=== PATIENT | male | born 1965 | race Caucasian/White ===

== ENCOUNTER 2020-07-27 17:48 | Emergency (ER) | payer MEDICAID, SELFPAY ==
[2020-07-27 18:59] VITALS: BP 117/75; PULSE 123; RESP 22; TEMP 36.9; O2SAT 95; BMI 32.5
--- NOTE | 2020-07-27 19:58 | CTR_ITS ---
PROCEDURE INFORMATION: Exam: CT Abdomen And Pelvis Without Contrast Exam date and time: 07/27/2020 8:23 PM Age: 55 years old Clinical indication: Abdominal pain; Localized; Lower; Prior surgery; Surgery date: 6+ months; Surgery type: Prostate; Additional info: Hematuria TECHNIQUE: Imaging protocol: Computed tomography of the abdomen and pelvis without contrast. Radiation optimization: All CT scans at this facility use at least one of these dose optimization techniques: automated exposure control; mA and/or kV adjustment per patient size (includes targeted exams where dose is matched to clinical indication); or iterative reconstruction. COMPARISON: CR Abdomen Series Acute [id number] 02/01/2019 10:52 AM RADIATION DOSE METRICS: Total DLP (mGy-cm): 1448.27 FINDINGS: Lungs: There is left basilar atelectasis versus scarring. Pleural space: There is left pleural thickening with extensive pleural calcification compatible with prior asbestos related exposure, remote injury or infection. Liver: Unremarkable.No mass. 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 There is no wall thickening or pericholecystic fluid to suggest cholecystitis. Pancreas: Normal. No ductal dilation. Spleen: Normal. No splenomegaly. Adrenal glands: Normal. No mass. Kidneys and ureters: There is bilateral severe hydronephrosis left slightly greater than right but no obstructing calculus is identified. There is inflammatory perinephric stranding. There is no evidence of renal calcifications. Stomach and bowel: There is no evidence of intestinal perforation or obstruction. There is no evidence of colitis/diverticulitis. Appendix: No evidence of appendicitis. Intraperitoneal space: Unremarkable. No free air. No significant fluid collection. Vasculature: The aorta demonstrates mild atherosclerotic calcification. Lymph nodes: There is retroperitoneal adenopathy with multiple lymph nodes measuring up to 11 mm in short axis. Multiple subcentimeter lymph nodes are noted in the pelvis and groin. Urinary bladder: There is marked urinary bladder wall thickening with abundant induration of the surrounding fat concerning for cystitis with poor distension. Multiple punctate calculi are noted dependently in the urinary bladder. Reproductive: Probable postoperative changes of a TURP procedure are noted. Bones/joints: Unremarkable. No acute fracture. Soft tissues: There is diffuse induration of the subcutaneous fat and mesenteric fat compatible with anasarca type changes. CT/CT kidney stone [id number] IMPRESSION: 1. There is marked urinary bladder wall thickening with abundant induration of the surrounding fat concerning for cystitis with poor distension. Tiny bladder calculi are noted. Bladder neoplasm cannot be excluded given the marked bladder wall thickening. 2. There is bilateral severe hydronephrosis left slightly greater than right but no obstructing calculus is identified. 3. There is diffuse induration of the subcutaneous fat and mesenteric fat compatible with mild anasarca type changes. Radiation Dose CTDIVOL = (mGy): DLP = 1448.27 (mGy-cm)
--- NOTE | 2020-07-27 19:59 | W.ED.MALEGU ---
HPI - Male Genitourinary General: Chief complaint: Urogenital-Male Stated complaint: blood in urine Time Seen by Provider: 07/27/20 19:44 Source: patient Mode of arrival: ambulatory Limitations: no limitations History of Present Illness: HPI Narrative: 55-year-old male patient comes in today with complaints of blood in his urine for the last 2 days. Patient reports that it started last night. Patient reports some lower abdominal pain. Patient has a history of prostatectomy. Patient has chronic incontinence after the surgery. Patient has diabetes and hypertension. Patient appears mildly unwell. Patient appears no acute distress. Patient does appear in mild to moderate pain. Associated symptoms: Reports dysuria and hematuria Review of Systems General: Reports: 10 or more systems reviewed and unremarkable except in HPI and below : Reports: dysuria and hematuria Physical Exam Const: COMMON NORMALS: no acute distress and patient oriented x3 GENERAL APPEARANCE: cooperative HENMT: COMMON NORMALS: normocephalic, TM's normal bilaterally and Normal external nose present HEAD & SCALP: normal to inspection and normocephalic NOSE: Normal external nose present TYMPANIC MEMBRANE: TM's normal bilaterally MOUTH: Normal oral and palatal mucosa present Eye: GENERAL EYE: appearance normal, both eyes and all related structures Neck/C-Spine: COMMON NORMALS: full ROM Chest: COMMONS NORMALS: normal inspection of the chest Resp: COMMON NORMALS: normal respiratory effort EFFORT & INSPECTION: Yes able to speak in complete sentences Cardio: COMMON NORMALS: regular rate and regular rhythm RATE: regular rate RHYTHM: regular rhythm GI: INSPECTION: Yes normal to inspection PALPATION: Yes Tenderness to palpation present (GI) (suprapubic) : COMMON NORMALS: Yes no CVA tenderness BLADDER/KIDNEY EXAM: Yes no CVA tenderness Back/Pelvis: COMMON NORMALS: no CVA tenderness and thoracic and lumbar spine normal to inspection Extremity: COMMON NORMALS: normal to inspection Neuro: COMMON NORMALS: patient oriented x3 and moves all extremities Psych: COMMON NORMALS: mental status grossly normal and cooperative Skin: COMMON NORMALS: no rashes or lesions noted GENERAL SKIN EXAM: no rashes or lesions noted Course ED course: 2114, discussed with Dr. Kohler regarding patient's abnormal CT scan of bilateral hydronephrosis and thickened bladder wall. Patient is resting quietly. He also notes the patient has a 680 blood glucose. Patient does have a of diabetes mellitus and uses insulin but has not had a today. Patient reports this is not abnormal for him to get blood sugars as high. Vital Signs: Vital signs: Vital Signs Temperature 98.4 F 07/27/20 18:59 Pulse Rate 107 H 07/27/20 22:18 Respiratory Rate 22 H 07/27/20 18:59 Blood Pressure 114/65 07/27/20 22:18 Pulse Oximetry 98 07/27/20 22:18 MDM - Male MDM Narrative: Medical decision making narrative: 55-year-old male patient comes in today with complaints of blood in urine and low back pain. Patient reports it started yesterday but was unable to come in yesterday due to the bad weather. Patient had a prostatectomy done about 6 months ago at [facility] in [facility]. Patient reports chronic incontinence. Abdomen was tender in the suprapubic area. Respirations were even lungs were clear to auscultation. Differential diagnosis includes not limited to bladder cancer, urinary obstruction, urinary tract infection. Laboratory values noted a 15,000 white count, creatinine of 0.9, blood glucose 683, sodium 126. CT scan of the abdomen pelvis noted no obstructing stones but bilateral hydronephrosis. I reviewed this with Dr. Kohler who suggested Dietrich catheter although patient did not noted to have a distended bladder, it was thought that may be that thickening of the bladder wall due to infection may be causing some reduced flow and that the patient may have a scarred bladder due to his previous urinary retention. Dietrich catheter return clear urine about 100-200 cc with patient having improvement in pain. We will allow patient to go home with catheter we will treat his urinary infection and have him follow-up with urologist. Patient reported understanding agreed to plan. Patient's high glucose was treated in the emergency room although no signs of significant illness was noted. Lab Data: Labs: Lab Results 07/27/20 07/27/20 07/27/20 Range/Units 19:10 20:00 20:00 WBC 14.9 H (4.0-10.0) 10^3/ uL RBC 3.66 L (4.1-5.3) 10^6/u L Hgb 9.9 L (11.7-16.6) g/dL Hct 32.4 L (42.0-52.0) % MCV 88.5 (80-94) fL MCH 27.0 L (28.0-34.0) pg MCHC 30.6 (30.0-36.0) g/dL RDW 12.1 (12.1-15.1) % Plt Count 429 H (130-400) 10^3/c mm MPV 9.5 (7.4-10.4) fL Neut % (Auto) 82.8 % Lymph % (Auto) 7.6 % [place] % (Auto) 8.3 % Eos % (Auto) 0.1 % Baso % (Auto) 0.2 % Neut # (Auto) 12.32 H (1.8-7.7) 10^3/u L Lymph # (Auto) 1.1 (0.8-4.8) 10^3/u L [place] # (Auto) 1.2 H (0.2-0.9) 10^3/u L Eos # (Auto) 0.0 (0.0-0.8) 10^3/u L Baso # (Auto) 0.0 (0.0-0.1) 10^3/u L Nucleated RBC % (a uto) 0 % Nucleated RBCs # 0.0 /100WBC PT 14.90 (12.1-14.9) SECO NDS INR 1.13 (0.8-1.2) Sodium (136-145) mmol/L Potassium (3.5-5.1) mmol/L Chloride (98-107) mmol/L Carbon Dioxide (22-29) mmol/L Anion Gap (5-19) BUN (6-20) mg/dL Creatinine (0.7-1.2) mg/dL GFR Calculation (90-130) mL/min Glucose (65-115) mg/dL Calculated Osmolal ity (285-295) mOsm/k g Lactic Acid (0.5-2.2) mmol/L Calcium (8.5-10.5) mg/dL Total Bilirubin (0.15-1.2) mg/dL AST (0-40) U/L ALT (0-41) U/L Alkaline Phosphata se (40-130) IU/L Total Protein (6.6-8.7) g/dL Albumin (3.5-5.2) g/dL Globulin (1.3-4.6) g/dL Urine Color Yellow (Yellow) Urine Appearance Turbid (CLEAR) Urine pH 7 (5-7) Ur Specific Gravit y 1.005 (1.005-1.030) Urine Protein 2+ H (Negative) Urine Glucose (UA) 4+ H (Normal) Urine Ketones Negative (Negative) Urine Blood 3+ H (Negative) Urine Nitrate Negative (Negative) Urine Bilirubin Neg (Negative) Urine Urobilinogen Norm (Negative) mg/dL Ur Leukocyte Dary ase 2+ H (Negative) Urine RBC 80-100 H (0-2) /hpf Urine WBC Too numerous to c nt H (0-5) /hpf Ur Squamous Epith Cells 0-4 H (0-5) /hpf Amorphous Sediment Not Reportable Urine Bacteria 2+ H (NONE) /hpf Serum Ketones (Negative) 07/27/20 07/27/20 07/27/20 Range/Units 20:00 20:00 20:00 WBC (4.0-10.0) 10^3/ uL RBC (4.1-5.3) 10^6/u L Hgb (11.7-16.6) g/dL Hct (42.0-52.0) % MCV (80-94) fL MCH (28.0-34.0) pg MCHC (30.0-36.0) g/dL RDW (12.1-15.1) % Plt Count (130-400) 10^3/c mm MPV (7.4-10.4) fL Neut % (Auto) % Lymph % (Auto) % [place] % (Auto) % Eos % (Auto) % Baso % (Auto) % Neut # (Auto) (1.8-7.7) 10^3/u L Lymph # (Auto) (0.8-4.8) 10^3/u L [place] # (Auto) (0.2-0.9) 10^3/u L Eos # (Auto) (0.0-0.8) 10^3/u L Baso # (Auto) (0.0-0.1) 10^3/u L Nucleated RBC % (a uto) % Nucleated RBCs # /100WBC PT (12.1-14.9) SECO NDS INR (0.8-1.2) Sodium 126 L (136-145) mmol/L Potassium 4.0 (3.5-5.1) mmol/L Chloride 91 L (98-107) mmol/L Carbon Dioxide 23 (22-29) mmol/L Anion Gap 16.0 (5-19) BUN 13 (6-20) mg/dL Creatinine 0.9 (0.7-1.2) mg/dL GFR Calculation 87.3 L (90-130) mL/min Glucose 683 H* (65-115) mg/dL Calculated Osmolal ity 295 (285-295) mOsm/k g Lactic Acid 1.1 (0.5-2.2) mmol/L Calcium 8.1 L (8.5-10.5) mg/dL Total Bilirubin 0.6 (0.15-1.2) mg/dL AST 7 (0-40) U/L ALT 10 (0-41) U/L Alkaline Phosphata se 91 (40-130) IU/L Total Protein 6.7 (6.6-8.7) g/dL Albumin 2.8 L (3.5-5.2) g/dL Globulin 3.9 (1.3-4.6) g/dL Urine Color (Yellow) Urine Appearance (CLEAR) Urine pH (5-7) Ur Specific Gravit y (1.005-1.030) Urine Protein (Negative) Urine Glucose (UA) (Normal) Urine Ketones (Negative) Urine Blood (Negative) Urine Nitrate (Negative) Urine Bilirubin (Negative) Urine Urobilinogen (Negative) mg/dL Ur Leukocyte Dary ase (Negative) Urine RBC (0-2) /hpf Urine WBC (0-5) /hpf Ur Squamous Epith Cells (0-5) /hpf Amorphous Sediment Urine Bacteria (NONE) /hpf Serum Ketones Negative (Negative) Discharge Plan Discharge Patient Disposition: Home Clinical Impression: Urinary tract infection Qualifiers: Urinary tract infection type: acute cystitis Hematuria presence: with hematuria Qualified Code(s): N30.01 - Acute cystitis with hematuria Diabetes mellitus type II, uncontrolled Qualifiers: Glycemic state: with hyperglycemia Qualified Code(s): E11.65 - Type 2 diabetes mellitus with hyperglycemia Condition: Stable Prescriptions: New cefdinir 300 mg capsule 300 mg PO BID 10 Days Qty: 20 RF: 0 Discharge Orders: Discharge ED (Routine); Ordered 07/27/20 Ordered By: Eze Aguero Discharge Diet: Usual diet Discharge Activity: Increase activity as tolerated Patient Instructions: Dietrich Catheter Placement and Care (ED) Activity Restrictions/Additional Instructions: Drink plenty of fluids. Follow-up with urologist on Thursday for appointment to have catheter removed and recheck on infection. Take antibiotics as directed. Return to the emergency room for uncontrolled pain or high fever. Coding Level of Care Code ED Printing Grey Cloth Tender for Madhav Fwdiamante Exam Comprehensive
[2020-07-27 20:11] LABS: Basophils % 0.2 %; Eosinophils % 0.1 %; Hematocrit 32.4 % (42.0-52.0); Hemoglobin 9.9 g/dL (11.7-16.6); Lymphocytes # 1.1 10^3/uL (0.8-4.8); Lymphocytes % 7.6 %; Mean Corpuscular HGB Conc 30.6 g/dL (30.0-36.0); Mean Corpuscular Volume 88.5 fL (80-94); Mean Platelet Volume 9.5 fL (7.4-10.4); Monocytes # 1.2 10^3/uL (0.2-0.9); Monocytes % 8.3 %; Neutrophils # 12.32 10^3/uL (1.8-7.7); Neutrophils % 82.8 %; Nucleated Red Blood Cells % 0 %; Platelet Count 429 10^3/cmm (130-400); Red Blood Count 3.66 10^6/uL (4.1-5.3); Red Cell Distribution Width 12.1 % (12.1-15.1); White Blood Count 14.9 10^3/uL (4.0-10.0)
[2020-07-27] MEDS: ondansetron 2 mg/ML SDV 2 mL 4 MG IVP (20:11)
[2020-07-27] MEDS: sodium chloride 0.9% 500 ML 999 ML IV (20:11)
[2020-07-27] MEDS: fentaNYL 50 mcg/mL INJ 2mL IVP (20:12)
[2020-07-27 20:15] VITALS: BP 103/69; PULSE 108; O2SAT 93
[2020-07-27 20:28] LABS: INR 1.13 (0.8-1.2)
[2020-07-27 20:35] LABS: Alanine Aminotransferase 10 U/L (0-41); Albumin Level 2.8 g/dL (3.5-5.2); Alkaline Phosphatase 91 IU/L (40-130); Aspartate Amino Transferase 7 U/L (0-40); Blood Urea Nitrogen 13 mg/dL (6-20); Calcium 8.1 mg/dL (8.5-10.5); Carbon Dioxide 23 mmol/L (22-29); Chloride 91 mmol/L (98-107); Globulin 3.9 g/dL (1.3-4.6); Glomerular Filtration Rate 87.3 mL/min (90-130); Lactic Sepsis W/Reflex 1.1 mmol/L (0.5-2.2); Osmolality Calculated 295 mOsm/kg (285-295); Sodium 126 mmol/L (136-145); Total Bilirubin 0.6 mg/dL (0.15-1.2); Total Protein 6.7 g/dL (6.6-8.7)
[2020-07-27 20:57] LABS: Glucose 683 mg/dL (65-115)
[2020-07-27 21:22] LABS: Add Urine Microscopic? YES; Bilirubin Urine Neg (Negative); Blood Urine 3+ (Negative); Glucose Urine UA 4+ (Normal); Ketones Urine Negative (Negative); Leukocyte Esterase Urine 2+ (Negative); Nitrate Urine Negative (Negative); Protein Urine 2+ (Negative); Specific Gravity, Urine 1.005 (1.005-1.030); Urine Appearance Turbid (CLEAR); Urine Color Yellow (Yellow); Urobilinogen Urine Norm (Negative); pH Urine 7 (5-7)
[2020-07-27 21:32] LABS: RBC Urine 80-100 /hpf (0-2); Squamous Epithelial Cell Urine 0-4 /hpf (0-5); WBC Urine TOO NUMEROUS TO CNT /hpf (0-5)
[2020-07-27 21:33] LABS: Add Urine Culture? Yes; Bacteria Urine 2+ /hpf
[2020-07-27 21:34] LABS: Ketone (Acetest) Serum Negative (Negative)
[2020-07-27] MEDS: insulin regular-human 100 units/1 mL 12 UNIT IVP (21:36)
[2020-07-27] MEDS: potassium chloride ER 20 mEq Tablet 40 MEQ PO (21:37)
[2020-07-27 21:39] VITALS: BP 108/62; PULSE 104; O2SAT 95
[2020-07-27] MEDS: cefTRIAXone 2,000 MG in sodium chloride 0.9% (plus) 50 ML 100 MG IV (22:09)
[2020-07-27 22:18] VITALS: BP 114/65; PULSE 107; O2SAT 98
[2020-07-27 23:01] VITALS: BP 129/65
[2020-07-27 23:04] VITALS: BP 129/65; PULSE 105; O2SAT 97
[2020-07-28 09:20] LABS: Glucose Point of Care 430 mg/dL (70-110)
== END 2020-07-27 23:04 | disposition home or self-care (01) ==
PROVIDERS: Emergency Medicine; Emergency Provider Nurse Practitioner Family
DX: N30.01 Acute cystitis with hematuria (principal); E11.65 Type 2 diabetes mellitus with hyperglycemia
CPT/HCPCS: 12345; 36416; 51702; 74176; 80053; 81001; 82009; 82962; 83605; 85025; 85610; 87040; 87077; 87086; 87186; 96365; 96375; 99283; 99284; 99291; J0696; J1815; J2405; J3010; J7040

== ENCOUNTER 2020-08-01 10:54 | Emergency (ER) | payer MEDICAID, SELFPAY ==
[2020-08-01 11:00] VITALS: BP 152/83; PULSE 87; RESP 16; TEMP 36.8; O2SAT 97; BMI 32.5
--- NOTE | 2020-08-01 11:38 | W.ED.MALEGU ---
HPI - Male Genitourinary General: Chief complaint: General Medical Stated complaint: catheter tubing pulling, needs referral Time Seen by Provider: 08/01/20 11:22 Source: patient Mode of arrival: ambulatory Limitations: no limitations History of Present Illness: HPI Narrative: Patient is a nice 55-year-old gentleman who presents to ED today requesting repositioning to his Dietrich catheter as he states it is tugging when he moves in certain positions. Patient was seen at our facility approximately 5 days ago with complaints of hematuria and chunks in his urine. Evaluation during that visit showed a UTI. He had a CT scan showing marked bladder wall thickening most likely due to acute cystitis. He also was found to have severe bilateral hydronephrosis. There was no calculus obstruction. Patient tells me he has suffered from chronic urinary incontinence ever since his prostatectomy. Patient tells me after the Dietrich was placed on his last visit he feels much improved. The hematuria has resolved. He has been taking his antibiotics as prescribed. He is not having any flank pain. No fevers. He has mild suprapubic discomfort but states this is much improved since his last visit. He states he was supposed to have a referral to urology but has not heard from this. Associated symptoms: Deny nausea or vomiting Review of Systems Const: Denies: fever(s), chills, body aches, fatigue or malaise Card: Denies: chest pain Resp: Denies: dyspnea GI: Denies: abdominal pain, nausea, vomiting or diarrhea : Reports: urinary incontinence (chronic) and hematuria (vastly improved since last visit ); Denies: flank pain or penile discharge Musc: Denies: back pain Neuro: Denies: headache(s) Physical Exam Const: COMMON NORMALS: no acute distress, average body habitus, patient oriented x3, no limitations, healthy appearing, alert and well nourished Resp: COMMON NORMALS: normal respiratory effort and clear to auscultation bilaterally AUSCULTATION: clear to auscultation bilaterally Cardio: COMMON NORMALS: regular rate and regular rhythm RATE: regular rate RHYTHM: regular rhythm GI: COMMON NORMALS: Normal to inspection, nondistended, normoactive bowel sounds present, Soft to palpation, No hepatosplenomegaly present and no masses PALPATION: Yes Soft to palpation, Yes Tenderness to palpation present (GI) (mild suprapubic) and Yes No hepatosplenomegaly present : COMMON NORMALS: Yes no CVA tenderness BLADDER/KIDNEY EXAM: Yes no CVA tenderness Back/Pelvis: COMMON NORMALS: no CVA tenderness Extremity: COMMON NORMALS: normal to inspection, no clubbing, cyanosis or edema and no pedal edema Neuro: COMMON NORMALS: patient oriented x3 SENSORIUM/ORIENTATION: Yes alert Skin: COMMON NORMALS: no rashes or lesions noted GENERAL SKIN EXAM: no rashes or lesions noted Course Vital Signs: Vital signs: Vital Signs Temperature 98.2 F 08/01/20 11:00 Pulse Rate 87 08/01/20 11:00 Respiratory Rate 16 08/01/20 11:00 Blood Pressure 152/83 08/01/20 11:00 Pulse Oximetry 97 08/01/20 11:00 MDM - Male MDM Narrative: Medical decision making narrative: Patient reports he feels much better from his last visit. We discussed removing his Dietrich on today's visit as he is not having urinary retention however patient insists that he keeps it in as he is growing tired of the chronic urinary incontinence. His UA shows vast improvement. His culture from last visit growing Klebsiella pneumoniae sensitive to third-generation cephalosporins so the cefdinir patient was prescribed should be adequate. Patient is not having flank pain. He is not having fevers, chills, nausea, vomiting. His vital signs are stable. I do not feel repeating labs or imaging today was indicated. I have placed his information with case management to get him follow-up with Dr. Jenkins so he may evaluate the chronic incontinence as well as the CT findings of bladder wall thickening (neoplasm could not be excluded on the CT evaluation) and bilateral hydronephrosis. ED precautions given. Lab Data: Labs: Lab Results 08/01/20 Range/Units 12:00 Urine Color Yellow (Yellow) Urine Appearance Clear (CLEAR) Urine pH 7 (5-7) Ur Specific Gravit y 1.000 L (1.005-1.030) Urine Protein Neg (Negative) Urine Glucose (UA) 4+ H (Normal) Urine Ketones Negative (Negative) Urine Blood Neg (Negative) Urine Nitrate Negative (Negative) Urine Bilirubin Neg (Negative) Urine Urobilinogen Norm (Negative) mg/dL Ur Leukocyte Dary ase Trace H (Negative) Amorphous Sediment Not Reportable Discharge Plan Discharge Patient Disposition: Home Clinical Impression: Urinary incontinence Qualifiers: Urinary Incontinence type: other incontinence Qualified Code(s): N39.498 - Other specified urinary incontinence Dietrich catheter problem Qualifiers: Encounter type: initial encounter Qualified Code(s): T83.9XXA - Unspecified complication of genitourinary prosthetic device, implant and graft, initial encounter Condition: Stable Prescriptions: No Action atorvastatin 40 mg tablet 40 mg PO DAILY@0600 RF: 0 lisinopril 5 mg tablet 5 mg PO DAILY@0600 RF: 0 Lantus Solostar U-100 Insulin 100 unit/mL (3 mL) insulin pen 10 unit SUBCUT BEDTIME@2000 RF: 0 cefdinir 300 mg capsule 300 mg PO BID@0600,1700 RF: 0 Discharge Orders: Discharge ED (Routine); Ordered 08/01/20 Ordered By: Sherry Saba Referrals: Ethan Jenkins MD [Physician] - Activity Restrictions/Additional Instructions: As discussed case management should get a hold of you shortly to set you up with Dr. Jenkins. Return to the emergency department if your catheter begins having trouble draining, if you begin experiencing severe abdominal pain penile pain, or flank pain, fevers, reduced urine output, or any other concerns you may have. Coding Level of Care Code ED Attorney Law Clerk for Madhav Fwd Exam Detailed
[2020-08-01 12:36] LABS: Glucose Urine UA 4+ (Normal); Protein Urine Neg (Negative); Urine Appearance Clear (CLEAR); Urine Color Yellow (Yellow); pH Urine 7 (5-7)
[2020-08-01 12:37] LABS: Add Urine Microscopic? YES; Bilirubin Urine Neg (Negative); Blood Urine Neg (Negative); Ketones Urine Negative (Negative); Leukocyte Esterase Urine Trace (Negative); Nitrate Urine Negative (Negative); Urobilinogen Urine Norm (Negative)
[2020-08-01 12:50] LABS: Bacteria Urine TRACE /hpf; WBC Urine 0-4 /hpf (0-5)
--- NOTE | 2020-08-02 14:21 | DCPLANNER ---
Addendum entered by Mari Gagnon 08/15/20 11:32: manager equipment called the office of Dr. Jenkins to confirm that a follow up appointment had been scheduled for patient. manager equipment spoke with Rachel, was told that clinic is waiting for notes from another physician before he can be seen. Original Note: manager equipment had message to schedule a follow up appointment for patient with Dr. Jenkins. manager equipment called the office of Dr. Jenkins, spoke with Carli, gave clinic patients information. manager equipment was told that patients information would be printed and reviewed. Clinic will call patient with appointment information.
--- NOTE | 2020-08-28 12:45 | DCPLANNER ---
Patient has a follow up appointment scheduled for Thursday, September 03, 2020 at 3:[address] Jenkins. Clinic will call patient with appointment information.
--- NOTE | 2020-10-11 14:53 | DCPLANNER ---
Patient had a follow up appointment scheduled with Dr. Jenkins - patient did attend appointment.
== END 2020-08-01 13:01 | disposition home or self-care (01) ==
PROVIDERS: Emergency Provider Physician Assistant
DX: N39.498 Other specified urinary incontinence (principal); T83.9XXA Unspecified complication of genitourinary prosthetic device, implant and graft, initial encounter; Z79.4 Long term (current) use of insulin
CPT/HCPCS: 12345; 81001; 99281; 99282

== ENCOUNTER 2020-08-03 08:41 | Emergency (ER) | payer MEDICAID, SELFPAY ==
[2020-08-03 08:46] VITALS: BP 170/96; PULSE 95; RESP 20; TEMP 36.7; O2SAT 98; BMI 32.5
--- NOTE | 2020-08-03 08:56 | ED_ITS ---
HPI - Male Genitourinary General: Chief complaint: Urogenital-Male Stated complaint: CATETHER PROBLEMS Time Seen by Provider: 08/03/20 08:48 Source: patient Mode of arrival: ambulatory Limitations: no limitations History of Present Illness: HPI Narrative: Patient is a very nice 55-year-old male who presents to ED today with a complaint that his Xiao catheter is not draining. I saw patient 2 days ago for a complaint that his catheter/leg bag was tugging. On this visit Xiao was readjusted and patient reported an improvement. Xiao was draining adequately at that time. Patient tells me yesterday evening he began noticing the catheter was not draining. Currently he is complaining of lower abdominal pain. 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 Patient was seen on our facility approximately a week ago with complaints of hematuria and chunks in his urine. Evaluation during that visit showed a UTI. He had a CT scan showing marked bladder wall thickening most likely due to acute cystitis. He also was found to have severe bilateral hydronephrosis. There was no calculus obstruction. He has continued to take his antibiotics as directed. He denies flank pain, fevers, chills, nausea, vomiting. Prior to the Xiao becoming obstructed, patient tells me his urine had been clear and the hematuria and sediment had resolved. I placed a referral with Dr. Jenkins on his last visit. Complaint: other (xiao not draining) Onset (ago): hour(s) Location: abdomen Associated symptoms: Deny dysuria, nausea or vomiting Review of Systems Const: Denies: fever(s), chills, body aches, fatigue or malaise Card: Denies: chest pain Resp: Denies: dyspnea GI: Reports: abdominal pain; Denies: nausea, vomiting or change in stool character : Reports: urinary incontinence (chronic) and other (xiao not draining); Denies: flank pain, dysuria or penile discharge Musc: Denies: back pain Skin/Breast: Denies: rash Neuro: Denies: headache(s) Physical Exam Const: COMMON NORMALS: no acute distress, average body habitus, patient oriented x3, no limitations, healthy appearing, alert and well nourished GI: COMMON NORMALS: Normal to inspection, nondistended, normoactive bowel sounds present, Soft to palpation, No hepatosplenomegaly present and no masses PALPATION: Yes Soft to palpation, Yes Tenderness to palpation present (GI) (suprapubic) and Yes No hepatosplenomegaly present : COMMON NORMALS: Yes no CVA tenderness and Yes normal external exam BLADDER/KIDNEY EXAM: Yes catheter in place Catheter type (Male): urethral (xiao with leg bag; no urine in bag) and Yes no CVA tenderness PENIS: normal penis MEATUS: meatus normal Back/Pelvis: COMMON NORMALS: no CVA tenderness Extremity: COMMON NORMALS: no clubbing, cyanosis or edema, no calf tenderness and no pedal edema Neuro: COMMON NORMALS: patient oriented x3 SENSORIUM/ORIENTATION: Yes alert Skin: COMMON NORMALS: no rashes or lesions noted GENERAL SKIN EXAM: no rashes or lesions noted Course Reevaluation(s): Reevaluation #1: Xiao replaced by RN and now draining well. Patient reports feeling much better. Vital Signs: Vital signs: Vital Signs Temperature 98.1 F 08/03/20 08:46 Pulse Rate 95 08/03/20 08:46 Respiratory Rate 20 H 08/03/20 08:46 Blood Pressure 170/96 08/03/20 08:46 Pulse Oximetry 98 08/03/20 08:46 MDM - Male MDM Narrative: Medical decision making narrative: Patient's Xiao was irrigated without success. It ended up being replaced and is now draining well. Patient tells me he feels much better. He is no longer complaining of abdominal pain. He has no flank pain. Patient's information has been faxed to Dr. Jenkins's office-awaiting date and time for his appointment. Patient's blood work is non-concerning at this time. UA still looks okay. Recommended to continue the cefdinir he is prescribed for treatment of his initial UTI. Return to ED precautions given. Lab Data: Labs: Lab Results 08/03/20 08/03/20 08/03/20 Range/Units 12:08 12:16 12:16 WBC 7.0 (4.0-10.0) 10^3/ uL RBC 3.65 L (4.1-5.3) 10^6/u L Hgb 9.9 L (11.7-16.6) g/dL Hct 32.7 L (42.0-52.0) % MCV 89.6 (80-94) fL MCH 27.1 L (28.0-34.0) pg MCHC 30.3 (30.0-36.0) g/dL RDW 12.1 (12.1-15.1) % Plt Count 526 H (130-400) 10^3/c mm MPV 9.0 (7.4-10.4) fL Neut % (Auto) 67.0 % Lymph % (Auto) 22.1 % [place] % (Auto) 7.6 % Eos % (Auto) 1.6 % Baso % (Auto) 0.4 % Neut # (Auto) 4.69 (1.8-7.7) 10^3/u L Lymph # (Auto) 1.6 (0.8-4.8) 10^3/u L [place] # (Auto) 0.5 (0.2-0.9) 10^3/u L Eos # (Auto) 0.1 (0.0-0.8) 10^3/u L Baso # (Auto) 0.0 (0.0-0.1) 10^3/u L Nucleated RBC % (a uto) 0 % Nucleated RBCs # 0.0 /100WBC Sodium 140 (136-145) mmol/L Potassium 4.2 (3.5-5.1) mmol/L Chloride 100 (98-107) mmol/L Carbon Dioxide 30 H (22-29) mmol/L Anion Gap 14.2 (5-19) BUN 7 (6-20) mg/dL Creatinine 0.6 L (0.7-1.2) mg/dL GFR Calculation 139.4 H (90-130) mL/min Glucose 219 H (65-115) mg/dL Calculated Osmolal ity 295 (285-295) mOsm/k g Calcium 8.9 (8.5-10.5) mg/dL Total Bilirubin 0.3 (0.15-1.2) mg/dL AST 7 (0-40) U/L ALT 10 (0-41) U/L Alkaline Phosphata se 103 (40-130) IU/L Total Protein 7.0 (6.6-8.7) g/dL Albumin 3.1 L (3.5-5.2) g/dL Globulin 3.9 (1.3-4.6) g/dL Urine Color Straw (Yellow) Urine Appearance Clear (CLEAR) Urine pH 8 H (5-7) Ur Specific Gravit y 1.010 (1.005-1.030) Urine Protein Neg (Negative) Urine Glucose (UA) 4+ H (Normal) Urine Ketones Negative (Negative) Urine Blood Neg (Negative) Urine Nitrate Negative (Negative) Urine Bilirubin Neg (Negative) Prot Sulfosalicyli c Acd Negative (Negative) Urine Urobilinogen 1 H (Negative) mg/dL Ur Leukocyte [place] Trace H (Negative) Urine RBC None (0-2) /hpf Urine WBC 5-10 H (0-5) /hpf Ur Squamous Epith Cells 0-4 H (0-5) /hpf Amorphous Sediment Not Reportable Urine Bacteria Trace (NONE) /hpf Discharge Plan Discharge Patient Disposition: Home Clinical Impression: Xiao catheter problem Qualifiers: Encounter type: subsequent encounter Qualified Code(s): T83.9XXD - Unspecified complication of genitourinary prosthetic device, implant and graft, subsequent encounter Condition: Stable Prescriptions: No Action atorvastatin 40 mg tablet 40 mg PO DAILY@0600 RF: 0 lisinopril 5 mg tablet 5 mg PO DAILY@0600 RF: 0 Lantus Solostar U-100 Insulin 100 unit/mL (3 mL) insulin pen 10 unit SUBCUT BEDTIME@2000 RF: 0 cefdinir 300 mg capsule 300 mg PO BID@0600,1700 RF: 0 Discharge Orders: Discharge ED (Routine); Ordered 08/03/20 Ordered By: Sherry Saba Referrals: Ethan Jenkins MD [Physician] - Activity Restrictions/Additional Instructions: We have replaced your Xiao catheter today and it currently is draining well. As we discussed case management should contact you shortly to set you up with your appointment with Dr. Jenkins-we have confirmed they have all of your information. Continue taking your antibiotics until gone. You need to return to the emergency department for flank pain, abdominal pain, Xiao not draining, fevers, or any other concerns you may have. Coding Level of Care Code ED [employer] for [employer] Fwd Exam Detailed
[2020-08-03 12:42] LABS: Basophils % 0.4 %; Eosinophils # 0.1 10^3/uL (0.0-0.8); Eosinophils % 1.6 %; Hematocrit 32.7 % (42.0-52.0); Hemoglobin 9.9 g/dL (11.7-16.6); Lymphocytes # 1.6 10^3/uL (0.8-4.8); Lymphocytes % 22.1 %; Mean Corpuscular HGB Conc 30.3 g/dL (30.0-36.0); Mean Corpuscular Hemoglobin 27.1 pg (28.0-34.0); Mean Corpuscular Volume 89.6 fL (80-94); Monocytes # 0.5 10^3/uL (0.2-0.9); Monocytes % 7.6 %; Neutrophils # 4.69 10^3/uL (1.8-7.7); Nucleated Red Blood Cells % 0 %; Platelet Count 526 10^3/cmm (130-400); Red Blood Count 3.65 10^6/uL (4.1-5.3); Red Cell Distribution Width 12.1 % (12.1-15.1)
[2020-08-03 12:52] LABS: Protein Urine Neg (Negative); Urine Appearance Clear (CLEAR); Urine Color Straw (Yellow); pH Urine 8 (5-7)
[2020-08-03 12:53] LABS: Add Urine Microscopic? YES; Bilirubin Urine Neg (Negative); Blood Urine Neg (Negative); Glucose Urine UA 4+ (Normal); Ketones Urine Negative (Negative); Leukocyte Esterase Urine Trace (Negative); Nitrate Urine Negative (Negative); Sulfosalicylic Acid Urine Negative (Negative); Urobilinogen Urine 1 mg/dL (Negative)
[2020-08-03 12:54] LABS: Add Urine Culture? No; Bacteria Urine TRACE /hpf; Squamous Epithelial Cell Urine 0-4 /hpf (0-5)
[2020-08-03 12:58] LABS: Alanine Aminotransferase 10 U/L (0-41); Albumin Level 3.1 g/dL (3.5-5.2); Alkaline Phosphatase 103 IU/L (40-130); Anion Gap 14.2 (5-19); Aspartate Amino Transferase 7 U/L (0-40); Blood Urea Nitrogen 7 mg/dL (6-20); Calcium 8.9 mg/dL (8.5-10.5); Carbon Dioxide 30 mmol/L (22-29); Chloride 100 mmol/L (98-107); Globulin 3.9 g/dL (1.3-4.6); Glomerular Filtration Rate 139.4 mL/min (90-130); Glucose 219 mg/dL (65-115); Osmolality Calculated 295 mOsm/kg (285-295); Potassium 4.2 mmol/L (3.5-5.1); Sodium 140 mmol/L (136-145); Total Bilirubin 0.3 mg/dL (0.15-1.2)
== END 2020-08-03 13:35 | disposition home or self-care (01) ==
PROVIDERS: Emergency Provider Physician Assistant
DX: T83.9XXA Unspecified complication of genitourinary prosthetic device, implant and graft, initial encounter (principal); Z79.4 Long term (current) use of insulin
CPT/HCPCS: 12345; 80053; 81001; 85025; 99281; 99282

== ENCOUNTER → 2020-09-19 09:28 | Outpatient (BNVA) | payer SELFPAY | PROVIDERS: PCP Physician Assistant; Visit Provider Urology | DX: R33.9 Retention of urine, unspecified (principal); R33.8 Other retention of urine; N36.42 Intrinsic sphincter deficiency (ISD); N32.89 Other specified disorders of bladder; N30.20 Other chronic cystitis without hematuria | CPT/HCPCS: 81003 ==

== ENCOUNTER → 2020-10-05 13:16 | Outpatient (BNVA) | payer SELFPAY | PROVIDERS: PCP Physician Assistant; Visit Provider Urology | DX: N30.20 Other chronic cystitis without hematuria (principal); N36.42 Intrinsic sphincter deficiency (ISD); R33.9 Retention of urine, unspecified | CPT/HCPCS: 81003; 87077; 87086; 87184 ==